=== PATIENT | male | born 1965 | race African-American/Black ===

== ENCOUNTER 2017-12-04 13:28 | Inpatient (IN) | payer OTHER ==
[2017-12-04 14:33] VITALS: BMI 29.9
--- NOTE | 2017-12-04 17:54 | HP ---
COWS - Scale Resting Pulse: 0= [place] 80 or Below Sweatin= Chills/Flushing Restless Observation: 0= Sits Still Pupil Size: 0= Normal to Room Light Bone or Joint Aches: 1= Mild Discomfort Runny Nose/ Eye Tearin= None GI Upset > 30mins: 1= Stomach Cramp Tremor Observation: 1= Tremor [place], Not Seen Yawning Observation: 0= None Anxiety or Irritability: 1=Feels Anxious/Irritable Goose Flesh Skin: 3=Piloerection COWS Score: 8 Admission [facility] Chief Complaint: HEROIN WITHDRAWAL SX Allergies/Adverse Reactions: Allergies Allergy/AdvReac Type Severity Reaction Status Date / Time No Known Allergies Allergy Verified 12/04/17 17:24 History of Present Illness: 51 Y/O AA/MALE WITH A HX OF HEROIN AND COCAINE DEPENDENCE SEEKING DETOX TX. PT HAS PREVIOUS TX EPISODES. Exam Limitations: No Limitations, Clinical Condition - Ebola screening Have you traveled outside of the country in the last 21 days: No Have you had contact with anyone from an Ebola affected area: No Have you been sick,other than usual withdrawal symptoms: No Do you have a fever: No - Review of Systems Constitutional: Chills, Night Sweats, Changes in sleep EENT: reports: Blurred Vision, Tearing, Nose Congestion, Dental Problems Respiratory: reports: No Symptoms reported Cardiac: reports: Lightheadedness GI: reports: Constipated, Diarrhea, Nausea, Poor Fluid Intake, Vomiting : reports: No Symptoms Reported Musculoskeletal: reports: Back Pain, Joint Pain, Muscle Pain Integumentary: reports: No Symptoms Reported Neuro: reports: Headache, Numbness, Tingling, Tremors Endocrine: reports: No Symptoms Reported Hematology: reports: No Symptoms Reported Psychiatric: reports: Orientated x3 Other Systems: Reviewed and Negative Patient History - Patient Medical History Hx Anemia: No Hx Asthma: No Hx Chronic Obstructive Pulmonary Disease (COPD): No Hx Cancer: No Hx Cardiac Disorders: No Hx Congestive Heart Failure: No Hx Hypertension: No Hx Hypercholesterolemia: No Hx Pacemaker: No HX Cerebrovascular Accident: No Hx Seizures: No Hx Dementia: No Hx Diabetes: No Hx Gastrointestinal Disorders: No Hx Liver Disease: No Hx Genitourinary Disorders: No Hx Sexually Transmitted Disorders: No (PARVEEN) Hx Renal Disease (ESRD): No Hx Thyroid Disease: No Hx Human Immunodeficiency Virus (HIV): No (NEGATIVE HX) Hx Hepatitis C: No Hx Depression: No (DENIES) Hx Suicide Attempt: No (DENIES) Hx Bipolar Disorder: No Hx Schizophrenia: No - Patient Surgical History Past Surgical History: No Hx Neurologic Surgery: No Hx Cataract Extraction: No Hx Cardiac Surgery: No Hx Lung Surgery: No Hx Breast Surgery: No Hx Breast Biopsy: No Hx Abdominal Surgery: No Hx Appendectomy: No Hx Cholecystectomy: No Hx Genitourinary Surgery: No Hx Orthopedic Surgery: No Anesthesia Reaction: No - PPD History Previous Implant?: Yes Documented Results: Negative w/proof Date: 07/27/12 Results: 0 MM PPD to be Administered?: Yes - Reproductive History Patient is a Female of Child Bearing Age (11 -55 yrs old): No (MALE) - Smoking Cessation Smoking history: Current every day smoker Have you smoked in the past 12 months: Yes Aproximately how many cigarettes per day: 20 Hx Chewing Tobacco Use: No Initiated information on smoking cessation: Yes 'Breaking Loose' booklet given: 12/04/17 - Substance & Tx. History Hx Alcohol Use: No (DENIES) Hx Substance Use: Yes (HEROIN/COCAINE) Substance Use Type: Cocaine, Heroin Hx Substance Use Treatment: Yes (LAST TX AT [facility] - Substances Abused Heroin Route: Inhalation Frequency: Daily Amount used: 15bags Age of first use: 20 Date of Last Use: 12/04/17 Cocaine Route: Smoking Frequency: Daily Amount used: 2 bags Age of first use: 30 Date of Last Use: 12/03/17 Family Disease History - Family Disease History Family History: Denies Admission Physical Exam S - Vital Signs Vital Signs: Vital Signs - 24 hr 12/04/17 14:32 Temperature 98.2 F Pulse Rate 86 Respiratory 17 Rate Blood Pressure 106/61 - Physical General Appearance: Yes: Moderate Distress, Irritable, Anxious HEENTM: Yes: EOMI, Normocephalic, ANGELINA, Pharynx Normal, Other (MISSING TEETH) Respiratory: Yes: Chest Non-Tender, Lungs Clear, Normal Breath Sounds, No Respiratory Distress Neck: Yes: No masses,lesions,Nodules, Supple, Trachea in good position Breast: Yes: Breast Exam Deferred Cardiology: Yes: Regular Rhythm, Regular Rate, S1, S2 Abdominal: Yes: Normal Bowel Sounds, Non Tender, Soft Genitourinary: Yes: Other (N/C) Back: Yes: Within Normal Limits Musculoskeletal: Yes: full range of Motion, Gait Steady Extremities: Yes: Normal Range of Motion, Non-Tender Neurological: Yes: weight reduction specialist II-XII NML intact, Fully Oriented, Alert, Motor Strength 5/5 Integumentary: Yes: Dry, Warm Lymphatic: Yes: Within Normal Limits - Diagnostic (1) Opioid dependence with withdrawal Current Visit: Yes Status: Acute (2) Cocaine dependence, uncomplicated Current Visit: Yes Status: Acute Cleared for Admission [facility] - Detox or Rehab [facility] Level of Care: Medically Managed Detox Regimen/Protocol: Methadone [facility] Breath Alcohol Content Breath Alcohol Content: 0 Urine Drug Screen - Results Drug Screen Negative: No Urine Drug Screen Results: RUFINO-Cocaine, OPI-Opiates, BZO-Benzodiazepines
[2017-12-04] MEDS ORDERED: MAGNESIUM CITRATE 300 ML BOTTLE PO PRN (18:03)
[2017-12-04] MEDS ORDERED: MAGNESIUM HYDROX 2400MG/30ML ORAL SUSPENSION 30 ML CUP PO PRN (18:03)
[2017-12-04] MEDS ORDERED: ACETAMINOPHEN 325 MG TABLET (FP) PO PRN (18:03)
[2017-12-04] MEDS ORDERED: LOPERAMIDE HCL 2 MG CAPSULE PO PRN (18:03)
[2017-12-04] MEDS ORDERED: MAG HYDROX/AL HYDROX/SIMETH 30 ML UNIT-DOSE CUP PO PRN (18:03)
[2017-12-04] MEDS ORDERED: MENTHOL/PHENOL 1 EACH UD MM PRN (18:03)
[2017-12-04] MEDS ORDERED: guaiFENesin/D-METHORPHAN HB 10 ML UNIT-DOSE CUPS PO PRN (18:03)
[2017-12-04] MEDS ORDERED: IBUPROFEN 400 MG TABLET (FP) PO PRN (18:03)
[2017-12-04] MEDS ORDERED: P-EPHED 60MG/TRIPROLIDI 2.5MG TABLET PO PRN (18:03)
[2017-12-04] MEDS ORDERED: NICOTINE POLACRILEX 4 MG GUM BC PRN (18:03)
[2017-12-04] MEDS ORDERED: METHADONE HCL 10 MG TABLET (FOR DETOX USE ONLY) PO ONE ×2 (19:15→23:00)
[2017-12-04] MEDS ORDERED: MELATONIN 5 MG TABLETS PO PRN (22:00)
[2017-12-04] MEDS ORDERED: METHADONE HCL 10 MG TABLET (FOR DETOX USE ONLY) ONE (23:52)
[2017-12-05] MEDS: THIAMINE HCL 100 MG TABLET (FP) PO SCH ×2 (03:42→22:12)
[2017-12-05] MEDS: NICOTINE 21 MG/24 HOURS TOPICAL PATCH TD SCH ×2 (03:42→10:03)
[2017-12-05] MEDS: diazePAM 5 MG TABLET PO PRN ×2 (06:10→22:12)
[2017-12-05] MEDS ORDERED: METHADONE HCL 10 MG TABLET (FOR DETOX USE ONLY) PO ONE (10:00)
[2017-12-05 10:01] LABS: HEMATOCRIT 39.3 % (35.4-49); HEMOGLOBIN 13.3 GM/dL (11.7-16.9); MCH 30.5 pg (25.7-33.7); MCHC 33.9 g/dl (32.0-35.9); MEAN CELL VOLUME 89.9 fl (80-96); MEAN PLT VOLUME 8.1 fl (7.5-11.1); PLATELET COUNT 175 K/MM3 (134-434); RBC 4.37 M/mm3 (4.00-5.60); RDW 14.1 % (11.9-15.9); WHITE BLOOD COUNT 5.7 K/mm3 (4.0-10.0)
[2017-12-05] MEDS: PRENATAL VITAMINS W/ FOLIC ACID TABLET (FP) PO SCH (10:02)
[2017-12-05 10:25] LABS: CHLORIDE 108 mmol/L (98-107); POTASSIUM 4.3 mmol/L (3.5-5.1); SODIUM 141 mmol/L (136-145)
[2017-12-05 10:46] LABS: ALBUMIN 3.7 g/dl (3.4-5.0); ALK PHOS 62 U/L (45-117); ANION GAP 6 (8-16); BILIRUBIN,TOTAL 0.7 mg/dL (0.2-1.0); BLOOD UREA NITROGEN 10 mg/dL (7-18); CALCIUM 8.7 mg/dL (8.5-10.1); CO2 27 mmol/L (21-32); CREATININE 0.9 mg/dL (0.7-1.3); GLUCOSE,RANDOM 101 mg/dL (74-106); SGOT/AST 17 U/L (15-37); SGPT/ALT 23 U/L (12-78); TOT PROT 6.7 g/dl (6.4-8.2)
[2017-12-05 11:50] LABS: SICKLE CELL SCREEN POSITIVE (NEGATIVE)
[2017-12-05 12:13] LABS: RPR REACTIVE 1:2 (NONREACTIVE)
[2017-12-05 12:14] LABS: TREPONEMA ANTIBODY PREVIOUSLY REACTIVE (NONREACTIVE)
--- NOTE | 2017-12-05 12:43 | PN ---
BHS COWS - Scale Resting Pulse: 0= [place] 80 or Below Sweatin= Chills/Flushing Restless Observation: 1= Difficult to Sit Still Pupil Size: 1= Pupils >than Normal Bone or Joint Aches: 1= Mild Discomfort Runny Nose/ Eye Tearin= Nasal Congestion GI Upset > 30mins: 1= Stomach Cramp Tremor Observation of Outstretched Hands: 1= Tremor [place], Not Seen Yawning Observation: 1= 1-2x During Session Anxiety or Irritability: 1=Feels Anxious/Irritable Goose Flesh Skin: 0=Smooth Skin COWS Score: 9 BHS Progress Note (SOAP) Subjective: joint ache body pain tremor anxiety trouble sleep at night Objective: 12/05/17 12:44 Laboratory Vital Signs Temperature 98.2 F 12/05/17 11:30 Pulse Rate 65 12/05/17 11:30 Respiratory Rate 16 12/05/17 11:30 Blood Pressure 126/72 12/05/17 11:30 O2 Sat by Pulse Oximetry (%) Laboratory Last Values WBC 5.7 K/mm3 (4.0-10.0) 12/05/17 07:30 RBC 4.37 M/mm3 (4.00-5.60) 12/05/17 07:30 Hgb 13.3 GM/dL (11.7-16.9) 12/05/17 07:30 Hct 39.3 % (35.4-49) 12/05/17 07:30 MCV 89.9 fl (80-96) 12/05/17 07:30 MCH 30.5 pg (25.7-33.7) 12/05/17 07:30 MCHC 33.9 g/dl (32.0-35.9) 12/05/17 07:30 RDW 14.1 % (11.9-15.9) 12/05/17 07:30 Plt Count 175 K/MM3 (134-434) 12/05/17 07:30 MPV 8.1 fl (7.5-11.1) 12/05/17 07:30 Sickle Cell Screen Positive (NEGATIVE) 12/05/17 07:30 Sodium 141 mmol/L (136-145) 12/05/17 07:30 Potassium 4.3 mmol/L (3.5-5.1) 12/05/17 07:30 Chloride 108 mmol/L (98-107) H 12/05/17 07:30 Carbon Dioxide 27 mmol/L (21-32) 12/05/17 07:30 Anion Gap 6 (8-16) L 12/05/17 07:30 BUN 10 mg/dL (7-18) 12/05/17 07:30 Creatinine 0.9 mg/dL (0.7-1.3) 12/05/17 07:30 Creat Clearance w eGFR > 60 (>60) 12/05/17 07:30 Random Glucose 101 mg/dL (74-106) 12/05/17 07:30 Calcium 8.7 mg/dL (8.5-10.1) 12/05/17 07:30 Total Bilirubin 0.7 mg/dL (0.2-1.0) 12/05/17 07:30 AST 17 U/L (15-37) D 12/05/17 07:30 ALT 23 U/L (12-78) D 12/05/17 07:30 Alkaline Phosphatase 62 U/L (45-117) 12/05/17 07:30 Total Protein 6.7 g/dl (6.4-8.2) 12/05/17 07:30 Albumin 3.7 g/dl (3.4-5.0) 12/05/17 07:30 RPR Titer Reactive 1:2 (NONREACTIVE) H D 12/05/17 07:30 T.pallidum Ab (MHA) Previously reactive (NONREACTIVE) 12/05/17 07:30 lab noted rpr treated "years" ago 12/05/17 12:45 Assessment: 12/05/17 12:45 withdrawal sx Plan: continue detox
[2017-12-05 14:48] LABS: URINE APPEARANCE TURBID; URINE BILIRUBIN NEGATIVE (<2.0 mg/dL); URINE COLOR AMBER; URINE GLUCOSE (UA) NEGATIVE (NEGATIVE); URINE KETONE NEGATIVE (NEGATIVE); URINE NITRITE NEGATIVE (NEGATIVE); URINE PROTEIN NEGATIVE (NEGATIVE)
[2017-12-05 14:51] LABS: URINE LEUK ESTERASE 2+ (NEGATIVE)
[2017-12-05 15:12] LABS: CALCIUM OXALATE CRYSTALS FEW /hpf (NONE SEEN); EPI CELLS FEW /HPF (FEW); URINE BACTERIA MANY /hpf (NONE SEEN); URINE MUCUS MANY
--- NOTE | 2017-12-05 22:11 | EKG ---
Test Reason : Blood Pressure : / mmHG Vent. Rate : 054 BPM Atrial Rate : 054 BPM P-R Int : 162 ms QRS Dur : 090 ms QT Int : 430 ms P-R-T Axes : 055 025 029 degrees QTc Int : 407 ms SINUS BRADYCARDIA OTHERWISE NORMAL ECG NO PREVIOUS ECGS AVAILABLE Confirmed by PÉREZ MARTI, AKIKO ([id number]) on 12/05/2017 10:11:22 PM Referred By: PORTIA METZGER Confirmed By:AKIKO ORTEZ MD
[2017-12-06] MEDS: diazePAM 5 MG TABLET PO PRN ×3 (03:27→15:01)
[2017-12-06] MEDS ORDERED: TRIMETHOBENZAMIDE HCL 200MG/2ML INJ IM PRN (07:36)
[2017-12-06] MEDS ORDERED: METHADONE HCL 5 MG TABLET (FOR DETOX USE ONLY) PO ONE (10:00)
--- NOTE | 2017-12-06 10:29 | PN ---
BHS COWS - Scale Resting Pulse: 0= [place] 80 or Below Sweatin= Chills/Flushing Restless Observation: 1= Difficult to Sit Still Pupil Size: 1= Pupils >than Normal Bone or Joint Aches: 1= Mild Discomfort Runny Nose/ Eye Tearin= Nasal Congestion GI Upset > 30mins: 3= Vomiting/Diarrhea Tremor Observation of Outstretched Hands: 0= None Yawning Observation: 0= None Anxiety or Irritability: 1=Feels Anxious/Irritable Goose Flesh Skin: 0=Smooth Skin COWS Score: 9 BHS Progress Note (SOAP) Subjective: JOINT PAIN BODY ACHE VOMITING GI DISTRESS Objective: 12/06/17 10:31 Vital Signs Temperature 99.0 F 12/06/17 09:02 Pulse Rate 57 L 12/06/17 09:02 Respiratory Rate 18 12/06/17 09:02 Blood Pressure 155/82 12/06/17 09:02 O2 Sat by Pulse Oximetry (%) Laboratory Last Values WBC 5.7 K/mm3 (4.0-10.0) 12/05/17 07:30 RBC 4.37 M/mm3 (4.00-5.60) 12/05/17 07:30 Hgb 13.3 GM/dL (11.7-16.9) 12/05/17 07:30 Hct 39.3 % (35.4-49) 12/05/17 07:30 MCV 89.9 fl (80-96) 12/05/17 07:30 MCH 30.5 pg (25.7-33.7) 12/05/17 07:30 MCHC 33.9 g/dl (32.0-35.9) 12/05/17 07:30 RDW 14.1 % (11.9-15.9) 12/05/17 07:30 Plt Count 175 K/MM3 (134-434) 12/05/17 07:30 MPV 8.1 fl (7.5-11.1) 12/05/17 07:30 Sickle Cell Screen Positive (NEGATIVE) 12/05/17 07:30 Sodium 141 mmol/L (136-145) 12/05/17 07:30 Potassium 4.3 mmol/L (3.5-5.1) 12/05/17 07:30 Chloride 108 mmol/L (98-107) H 12/05/17 07:30 Carbon Dioxide 27 mmol/L (21-32) 12/05/17 07:30 Anion Gap 6 (8-16) L 12/05/17 07:30 BUN 10 mg/dL (7-18) 12/05/17 07:30 Creatinine 0.9 mg/dL (0.7-1.3) 12/05/17 07:30 Creat Clearance w eGFR > 60 (>60) 12/05/17 07:30 Random Glucose 101 mg/dL (74-106) 12/05/17 07:30 Calcium 8.7 mg/dL (8.5-10.1) 12/05/17 07:30 Total Bilirubin 0.7 mg/dL (0.2-1.0) 12/05/17 07:30 AST 17 U/L (15-37) D 12/05/17 07:30 ALT 23 U/L (12-78) D 12/05/17 07:30 Alkaline Phosphatase 62 U/L (45-117) 12/05/17 07:30 Total Protein 6.7 g/dl (6.4-8.2) 12/05/17 07:30 Albumin 3.7 g/dl (3.4-5.0) 12/05/17 07:30 Urine Color [place] 12/04/17 08:54 Urine Appearance Turbid 12/04/17 08:54 Urine pH 5.0 (5.0-8.0) 12/04/17 08:54 Ur Specific [place] 1.020 (1.001-1.035) 12/04/17 08:54 Urine Protein Negative (NEGATIVE) 12/04/17 08:54 Urine Glucose (UA) Negative (NEGATIVE) 12/04/17 08:54 Urine Ketones Negative (NEGATIVE) 12/04/17 08:54 Urine Blood 1+ (NEGATIVE) H 12/04/17 08:54 Urine Nitrite Negative (NEGATIVE) 12/04/17 08:54 Urine Bilirubin Negative (<2.0 mg/dL) 12/04/17 08:54 Urine Urobilinogen 2.0 mg/dL (0.2-1.0) 12/04/17 08:54 Ur Leukocyte Esterase 2+ (NEGATIVE) H 12/04/17 08:54 Urine WBC (Auto) 20 /hpf (3-5) 12/04/17 08:54 Urine RBC (Auto) 2 /hpf (0-3) 12/04/17 08:54 Ur Epithelial Cells Few /HPF (FEW) 12/04/17 08:54 Calcium Oxalate Crystal Few /hpf (NONE SEEN) 12/04/17 08:54 Urine Bacteria Many /hpf (NONE SEEN) 12/04/17 08:54 Urine Mucus Many 12/04/17 08:54 RPR Titer Reactive 1:2 (NONREACTIVE) H D 12/05/17 07:30 T.pallidum Ab (MHA) Previously reactive (NONREACTIVE) 12/05/17 07:30 LAB NOTED UTI Assessment: 12/06/17 10:33 WITHDRAWAL SX INCREASE ORAL FLUID UTI HYPERTENSION Plan: CONTINUE DETOX BACTRIM DS BID X 5 DAYS PERSONAL HYGIENE AMLODOPIN 10 MG PO DAILY
[2017-12-06] MEDS: NICOTINE 21 MG/24 HOURS TOPICAL PATCH TD SCH (10:30)
[2017-12-06] MEDS: PRENATAL VITAMINS W/ FOLIC ACID TABLET (FP) PO SCH (10:33)
[2017-12-06] MEDS: RANITIDINE HCL 150 MG TABLET (FP) PO SCH ×3 (11:16→22:32)
[2017-12-06] MEDS: SULFAMETHOXAZOLE/TRIMETHOPRIM 800MG/160MG D.S. TABLET PO SCH ×3 (11:16→22:32)
[2017-12-06] MEDS: amLODIPine BESYLATE 10 MG TABLET (FP) PO SCH ×2 (11:17→15:00)
[2017-12-06] MEDS: THIAMINE HCL 100 MG TABLET (FP) PO SCH (22:32)
[2017-12-07 07:45] VITALS: BP 141/71; PULSE 62; TEMP 99
[2017-12-07] MEDS ORDERED: METHADONE HCL 5 MG TABLET (FOR DETOX USE ONLY) PO ONE (10:00)
--- NOTE | 2017-12-07 12:37 | DS ---
[facility] Detox Discharge Summary Admission Date: 12/04/17 Discharge Date: 12/07/17 - History Present History: Opioid Dependence Additional Comments: 51 years old male admitted 12/04/17 for opiate withdrawal sx insists to terminate the opiate detox regimen wants to leave the detox facility - Physical Exam Results Vital Signs: Vital Signs Temperature 99 F 12/07/17 07:44 Pulse Rate 62 12/07/17 07:44 Respiratory Rate 20 12/07/17 07:44 Blood Pressure 141/71 12/07/17 07:44 O2 Sat by Pulse Oximetry (%) Pertinent Admission Physical Exam Findings: opiate withdrawal sx Vital Signs Temperature 99 F 12/07/17 07:44 Pulse Rate 62 12/07/17 07:44 Respiratory Rate 20 12/07/17 07:44 Blood Pressure 141/71 12/07/17 07:44 O2 Sat by Pulse Oximetry (%) Laboratory Last Values WBC 5.7 K/mm3 (4.0-10.0) 12/05/17 07:30 RBC 4.37 M/mm3 (4.00-5.60) 12/05/17 07:30 Hgb 13.3 GM/dL (11.7-16.9) 12/05/17 07:30 Hct 39.3 % (35.4-49) 12/05/17 07:30 MCV 89.9 fl (80-96) 12/05/17 07:30 MCH 30.5 pg (25.7-33.7) 12/05/17 07:30 MCHC 33.9 g/dl (32.0-35.9) 12/05/17 07:30 RDW 14.1 % (11.9-15.9) 12/05/17 07:30 Plt Count 175 K/MM3 (134-434) 12/05/17 07:30 MPV 8.1 fl (7.5-11.1) 12/05/17 07:30 Sickle Cell Screen Positive (NEGATIVE) 12/05/17 07:30 Sodium 141 mmol/L (136-145) 12/05/17 07:30 Potassium 4.3 mmol/L (3.5-5.1) 12/05/17 07:30 Chloride 108 mmol/L (98-107) H 12/05/17 07:30 Carbon Dioxide 27 mmol/L (21-32) 12/05/17 07:30 Anion Gap 6 (8-16) L 12/05/17 07:30 BUN 10 mg/dL (7-18) 12/05/17 07:30 Creatinine 0.9 mg/dL (0.7-1.3) 12/05/17 07:30 Creat Clearance w eGFR > 60 (>60) 12/05/17 07:30 Random Glucose 101 mg/dL (74-106) 12/05/17 07:30 Calcium 8.7 mg/dL (8.5-10.1) 12/05/17 07:30 Total Bilirubin 0.7 mg/dL (0.2-1.0) 12/05/17 07:30 AST 17 U/L (15-37) D 12/05/17 07:30 ALT 23 U/L (12-78) D 12/05/17 07:30 Alkaline Phosphatase 62 U/L (45-117) 12/05/17 07:30 Total Protein 6.7 g/dl (6.4-8.2) 12/05/17 07:30 Albumin 3.7 g/dl (3.4-5.0) 12/05/17 07:30 Urine Color [place] 12/04/17 08:54 Urine Appearance Turbid 12/04/17 08:54 Urine pH 5.0 (5.0-8.0) 12/04/17 08:54 Ur Specific [place] 1.020 (1.001-1.035) 12/04/17 08:54 Urine Protein Negative (NEGATIVE) 12/04/17 08:54 Urine Glucose (UA) Negative (NEGATIVE) 12/04/17 08:54 Urine Ketones Negative (NEGATIVE) 12/04/17 08:54 Urine Blood 1+ (NEGATIVE) H 12/04/17 08:54 Urine Nitrite Negative (NEGATIVE) 12/04/17 08:54 Urine Bilirubin Negative (<2.0 mg/dL) 12/04/17 08:54 Urine Urobilinogen 2.0 mg/dL (0.2-1.0) 12/04/17 08:54 Ur Leukocyte Esterase 2+ (NEGATIVE) H 12/04/17 08:54 Urine WBC (Auto) 20 /hpf (3-5) 12/04/17 08:54 Urine RBC (Auto) 2 /hpf (0-3) 12/04/17 08:54 Ur Epithelial Cells Few /HPF (FEW) 12/04/17 08:54 Calcium Oxalate Crystal Few /hpf (NONE SEEN) 12/04/17 08:54 Urine Bacteria Many /hpf (NONE SEEN) 12/04/17 08:54 Urine Mucus Many 12/04/17 08:54 RPR Titer Reactive 1:2 (NONREACTIVE) H D 12/05/17 07:30 T.pallidum Ab (MHA) Previously reactive (NONREACTIVE) 12/05/17 07:30 lab noted - Treatment Hospital Course: Detox Protocol Followed, Responded well Patient has Accepted a Rehab Referral to: [facility] - Medication Discharge Medications: Ambulatory Orders NK [No Known Home Medication] 12/04/17 - Diagnosis (1) Opioid dependence with withdrawal Status: Acute - AMA Did Patient Leave Against Medical Advice: Yes
[2017-12-08] MEDS ORDERED: METHADONE HCL 10 MG TABLET (FOR DETOX USE ONLY) PO ONE (10:00)
[2017-12-09] MEDS ORDERED: METHADONE HCL 5 MG TABLET (FOR DETOX USE ONLY) PO ONE (06:00)
== END 2017-12-07 09:30 | disposition left against medical advice (07) | DRG 770 ==
LOC: YASAS 13:28 → Y6N 17:44
PROVIDERS: ADMIT Family Medicine Addiction Medicine; ATTEND Family Medicine Addiction Medicine
PROC: HZ2ZZZZ Detoxification Services for Substance Abuse Treatment (ICD-10-PCS; principal; 2017-12-04)
DX: F11.23 Opioid dependence with withdrawal (principal); F14.20 Cocaine dependence, uncomplicated; Z59.0 Homelessness
CPT/HCPCS: 36415; 80053; 81003; 81015; 83021; 85027; 85660; 86593; 86780; 93005; 93010